=== PATIENT | female | born 1950 | race Two or more races ===

== ENCOUNTER → 2018-04-03 | Outpatient (CLI) | payer OTHER ==
[2018-04-03 12:45] LABS: ADD MAN DIFF? NO
[2018-04-03 12:51] LABS: BASO % 1 % (0-3); EOS # 0.1 x10^3/uL (0.0-0.7); EOS % 1 % (0-3); HEMATOCRIT 40.6 % (36.0-47.0); HEMOGLOBIN 13.8 g/dL (12.0-15.5); LYMPH # 1.6 x10^3/uL (1.0-4.8); LYMPH % 24 % (24-48); MEAN CORPUSCULAR HEMOGLOBIN 31 pg (25-35); MEAN CORPUSCULAR HGB CONC 34 g/dL (31-37); MEAN CORPUSCULAR VOLUME 91 fL (79-100); MONO # 0.5 x10^3/uL (0.0-1.1); MONO % 7 % (0-9); NEUT # 4.5 x10^3uL (1.8-7.7); NEUT % 67 % (31-73); PLATELET COUNT 228 x10^3/uL (140-400); RED BLOOD COUNT 4.44 x10^6/uL (3.50-5.40); RED CELL DISTRIBUTION WIDTH 13.8 % (11.5-14.5); WHITE BLOOD COUNT 6.7 x10^3/uL (4.0-11.0)
[2018-04-03 13:23] LABS: VITAMIN-B12 634 pg/mL (247-911)
[2018-04-03 14:18] LABS: ALBUMIN 4.4 g/dL (3.4-5.0); ALBUMIN/GLOBULIN RATIO 1.4 (1.0-1.7); ALK PHOS 57 U/L (46-116); ALT (SGPT) 32 U/L (14-59); ANION GAP 7 (6-14); AST (SGOT) 22 U/L (15-37); BLOOD UREA NITROGEN 15 mg/dL (7-20); BUN/CREATININE RATIO 25 (6-20); CALCIUM 9.5 mg/dL (8.5-10.1); CARBON DIOXIDE 30 mmol/L (21-32); CHLORIDE 104 mmol/L (98-107); CREATININE 0.6 mg/dL (0.6-1.0); GFR 100.3; GLUCOSE 103 mg/dL (70-99); SODIUM 141 mmol/L (136-145); TOTAL BILIRUBIN 0.5 mg/dL (0.2-1.0); TOTAL PROTEIN 7.5 g/dL (6.4-8.2)
[2018-04-03 14:28] LABS: THYROID STIM HORMONE (TSH) 0.749 uIU/mL (0.358-3.74)
== END | disposition home or self-care (01) ==
LOC: LAB 12:19
DX: R41.3 Other amnesia (principal)
CPT/HCPCS: 36415; 80053; 82607; 84443; 85025

== ENCOUNTER → 2018-04-25 | Outpatient (CLI) | payer OTHER | END | disposition home or self-care (01) | LOC: RT 10:58 | DX: R41.3 Other amnesia (principal) | CPT/HCPCS: 95816 ==